=== PATIENT | male | born 1995 | race African-American/Black ===

== ENCOUNTER → 2019-09-04 16:16 | Outpatient (CLI) | payer OTHER, SELFPAY ==
[2019-09-05 14:20] LABS: COVID19 Sendout NOT DETECTED (Not Detect)
== END ==
PROVIDERS: Visit Provider Registered Nurse
DX: Z11.59 Encounter for screening for other viral diseases (principal)
CPT/HCPCS: 87635

== ENCOUNTER 2019-09-07 12:40 | Day surgery (SDC) | payer OTHER, SELFPAY ==
[2019-09-03 13:23] VITALS: BMI 36.9
[2019-09-07] VITALS (7 sets, daily range): BP systolic 133–162; BP diastolic 55–93; PULSE 63–73; RESP 14–17; TEMP 36.9–37.2; O2SAT 98–100; BMI 36.1
[2019-09-07] MEDS: LACTATED RINGERS 1,000 ML 42 ML IV (13:43)
--- NOTE | 2019-09-07 14:41 | PM.PREOP ---
Pre-operative Note COVID-19 COVID-19 status: Negative Interval Note History & Physical reviewed/Exam performed by Physician: Yes Changes to H&P: No
--- NOTE | 2019-09-07 16:06 | P.OP_ITS ---
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 He had extensive conservative therapy including physical therapy and brace use. He has persistent lateral ankle and foot pain. Denies instability or rolling. He had plain x-rays CT and MRI scan from the [facility] that demonstrated nonunited anterior process calcaneus fracture as well as prominent ossicles at the region of the anterior calcaneal process and sinus tarsi. These directly correlate with the location work around on his imaging. He has elected to proceed with removal. The risks and benefits of the procedure have been discussed with the patient even opportunity to ask questions. The risks of surgery include but are not limited to infection, malunion, nonunion, persistence of pain, damage to nerves and blood vessels, posttraumatic arthritis, DVT, PE, cardiopulmonary complications and . The patient expressed a thorough understanding of the risks and benefits of surgery and has elected to proceed. Consent was signed in the office. 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 The patient was then brought back to the operating room by the anesthesia team. Anesthetic was administered. The patient was then positioned lateral on the beanbag. All bony prominences well padded. Well-padded axillary roll was placed. An SCD was placed on the co ntralateral lower extremity. A well-padded calf tourniquet was placed. The operative leg was prepped and draped in standard sterile fashion. A formal time-out procedure was performed confirming the patient's side and site of surgery administration of appropriate preoperative antibiotics and presence of informed consent. All were in agreement. Esmarch was used for exsanguination and tourniquet on the calf was raised to 250 mm of mercury and stayed there for 52 minutes. Mini C-arm was brought in and the sinus tarsi localized and the incision drawn out over the skin from the tip of the distal fibula towards the 4th metatarsal base. Skin incision was made. Dissection was taken through the subcutaneous tissues to expose the extensor hallucis brevis muscle. 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 I was taken to expose this out and released the extensor hallucis brevis by dividing the fascia leaving cuff to repair at the end of the case. This was retracted using a 2 0 PDS suture. This exposed the sinus tarsi. Of note there was a very prominent anterior lateral calcaneal spur that was noted on the preoperative imaging to block access to the subtalar loose bodies. This was localized under fluoroscopy then an osteotome was used to remove the anterolateral calcaneal spur providing access to the sinus tarsus a up against the lateral talar neck. Additional 062 K-wires were placed into the talus to use as retractors for soft tissue. Next combination of the pituitary rongeur orders and Shokan were used to identify and mobilize the intra-articular and sinus tarsi loose bodies these were 2 large ossicles and several smaller ossicles. Once these were completely removed the subtalar joint site and sinus tarsi was thoroughly irrigated taken through inversion eversion and no further loose bodies were found. A small amount of bone wax was used over the calcaneal ostectomy site. Next the 200 PDS into a Vicryl used to repair the extensor hallucis brevis muscle. Then 2 0 PDS was used for subcutaneous closure along with 4 0 Monocryl and then 3 O nylon in the skin. Tourniquet was released hemostasis was achieved. A 20 cc of 0.25% Marcaine were with epinephrine were injected subcutaneously and deep into the joint for local anesthetic. Sterile dressing with Xeroform gauze Webril and an Joel wrap was placed and the patient was placed into a postoperative boot. Patient was awoken from anesthesia and taken to recovery area in good condition there were no immediate complications from this procedure. Complications: none Post-operative Condition: stable Disposition: PACU Plan for aftercare: 50% weight-bearing for 2 weeks and weight bear as tolerated in boot. Keep dressing clean dry and intact. Follow-up in 2 weeks for suture removal.
[2019-09-07] MEDS: CEFAZOLIN 2 GM/100 ML FROZ.PIGGY IV (16:22)
--- NOTE | 2019-09-07 16:50 | SUR.OPER ---
Lateral on padded OR bed, head on pillow, gel axillary roll in place, bottom leg bent with gel pad under knee to foot, upper leg straight and supported with bath blankets per . Upper arm supported by pillows and secured over bottom arm to padded arm board. Safety belt at hip, tape over blanket across left leg.
[2019-09-07] MEDS: BUPIVACAINE 0.25% W/ EPI 30 ML VIAL INJ (17:09)
[2019-09-07] MEDS: HYDROCODONE/ACET 5/325 TABLET 1 TAB PO (18:05)
== END 2019-09-07 18:45 | disposition home or self-care (01) ==
PROVIDERS: Referring Provider Orthopaedic Surgery Foot and Ankle Surgery; Visit Provider Orthopaedic Surgery Foot and Ankle Surgery
PROC: (CPT 28120; principal; 2019-09-07 13:45)
DX: S92.021K Displaced fracture of anterior process of right calcaneus, subsequent encounter for fracture with nonunion (principal); X50.1XXA Overexertion from prolonged static or awkward postures, initial encounter
CPT/HCPCS: 28120; 28020; J0690; J1100; J2405; J2704; J3010

== ENCOUNTER 2022-03-25 13:28 | Emergency (ER) | payer OTHER, SELFPAY ==
[2022-03-25 13:33] VITALS: BP 158/70; PULSE 94; RESP 18; TEMP 36.8; O2SAT 99; BMI 35.7
[2022-03-25 14:21] LABS: Add Manual Diff / Slide Review NO; Basophils Absolute Auto 0 /uL (0-100); Basophils Percent Auto 0.2 % (0-2); Eosinophils Absolute Auto 0 /uL (0-450); Eosinophils Percent Auto 0.6 % (2-4); Hematocrit 44.9 % (41-53); Hemoglobin 14.9 g/dL (13.5-17.5); Lymphocytes Absolute Auto 600 /uL (1100-4500); Lymphocytes Percent Auto 8.5 % (25-40); Mean Corpuscular HGB Conc 33.1 % (30-36); Mean Corpuscular Hemoglobin 31.2 PG (26-34); Mean Corpuscular Volume 94.3 fL (80-100); Monocytes Absolute Auto 700 /uL (0-900); Monocytes Percent Auto 10.2 % (3-14); Neutrophils Absolute Auto 5700 /uL (1500-7000); Neutrophils Percent Auto 80.5 % (50-75); Platelet Count 232 X10^3/uL (150-400); Red Blood Cell Count 4.77 X10^6/uL (4.5-5.9); Red Cell Distribution Width 14.5 % (11.6-14.8); White Blood Cell Count 7.1 X10^3/uL (4.5-11.0)
[2022-03-25 14:26] LABS: Alanine Aminotransferase 45 IU/L (<50); Albumin 4.6 g/dL (3.5-5.0); Albumin Globulin Ratio 1.4 (1.0-2.8); Alkaline Phosphatase 79 U/L (38-126); Aspartate Aminotransferase 57 IU/L (17-59); BUN Creatinine Ratio 22.1 (6-22); Bilirubin Total 0.4 mg/dL (0.2-1.3); Blood Urea Nitrogen 36 mg/dL (9-20); Calcium 9.1 mg/dL (8.4-10.2); Carbon Dioxide 30 mmol/L (22-32); Chloride 98 mmol/L (98-107); Estimated Glomerular Filt Rate 59 mL/min (>60); Globulin 3.3 g/dL (1.7-4.1); Glucose 73 mg/dL (70-100); HEMOLYSIS < 15 (0-50); Lipase 138 U/L (23-300); Potassium 4.2 mmol/L (3.4-5.1); Sodium 137 mmol/L (137-145); Total Protein 7.9 g/dL (6.3-8.2)
[2022-03-25 15:16] VITALS: PULSE 101; O2SAT 98
--- NOTE | 2022-03-25 15:23 | DI.CT.S_ITS ---
PROCEDURE: CT KIDNEY URETER BLADDER (KUB) INDICATIONS: rib/back/groin pain TECHNIQUE: Axial sections were acquired from the lung bases to the pubic symphysis. Coronal and sagittal reformats were performed. For radiation dose reduction, the following was used: automated exposure control, adjustment of mA and/or kV according to patient size. COMPARISON: None. FINDINGS: Image quality: Excellent. Lung bases: Lung bases are clear. Heart size is normal. Solid organs: Liver: The liver has no mass or intrahepatic biliary ductal dilatation. The portal vein and hepatic veins are patent. Biliary: The gallbladder has no gallstones, pericholecystic fluid, gallbladder wall thickening, or surrounding inflammatory change. Pancreas: The pancreas has no mass or ductal dilatation. There is no surrounding inflammation. Spleen: Normal size. There are no masses. Adrenals: No hypertrophy or nodules. Kidneys: No obstructive calculus or hydronephrosis. No solid mass. No cystic mass. Peritoneum and bowel: The distal esophagus and stomach are normal. The small bowel has a normal caliber and appearance. The terminal ileum is normal. The large bowel has a normal caliber and appearance. The appendix is normal. No free fluid or air. Nodes and vessels: No retroperitoneal or mesenteric adenopathy by size criteria. Aorta and inferior vena cava are normal in size. Miscellaneous: No abdominal wall mass or hernia. PELVIS: Genitourinary: The bladder has no wall thickening or mass. No bladder calcifications. Bones: No suspicious bony lesions. No vertebral body compression fractures. IMPRESSION: No acute abdominal or pelvic abnormality. Dictated by: Joey Voss M.D. on 03/25/2022 at 15:45 Approved by: Joey Voss M.D. on 03/25/2022 at 15:49
--- NOTE | 2022-03-25 16:04 | ED.BACK ---
HPI - Back Pain/Injury General Chief Complaint: Back Pain/Injury Stated Complaint: Rib,back and groin pain x5 days Time Seen by Provider: 03/25/22 13:49 Source: patient History of Present Illness HPI Narrative: This is a 26-year-old male who presents with left lower rib, flank pain radiating around to the front of his groin but not including testicle. Patient states it started 5 days ago. He states movement does not seem to make it particularly worse. He is felt warm but had no objective fevers, he felt a little nauseated today but no vomiting. He denies diarrhea, constipation, black or bloody stools. He denies any dysuria, urgency frequency. No discharge. Patient states no testicular pain. Patient denies chest pain or shortness of breath no syncope. He does note that he was told his creatinine was 1.7 about a week ago, he had labs drawn because he was told he needed them for regular screeening, he is in the . He states pain started 2 days afterwards. He does note that he does a lot of weight lifting, sometimes 350 lb with squats. He did not appreciate any injury when he was last lifting. He has been resting the last several days. He denies daily medications he denies supplements were taking [id number] pain medications. No tobacco, occasional alcohol, denies illicit. He stationed at the [employer] on [facility] and gets primary care through there. He does have follow-up regarding his lab work. He is on a aware of any family history of kidney issues. He has not noted any rashes or skin changes. Related Data Previous Rx's Medication Instructions Recorded cephalexin 500 mg capsule 500 mg PO TID #10 caps 06/18/20 tramadol 50 mg tablet 50 mg PO QID PRN pain #10 tabs 03/25/22 Allergies Allergy/AdvReac Type Severity Reaction Status Date / Time oseltamivir [From Tamiflu] Allergy Verified 06/13/20 13:27 Review of Systems Review of Systems ROS Unobtainable: All systems reviewed & are unremarkable except as noted in HPI and below Patient History Medical History Hypertension Sterilization consult Surgical History H/O left knee surgery (09/2015) History of circumcision Social History marital status: number of children: 1 household members: spouse occupational status: employed Smoking Status: Never smoker alcohol intake: never caffeine: No Smoking Status: Never smoker alcohol intake frequency: holidays/special occasions only Substance Use Type: does not use Exam Narrative Exam Narrative: GENERAL: Alert and oriented x three, male in mild distress. Patient feels warm to touch but temperature was rechecked and he is still febrile at 98.8F orally. HEENT: Head normocephalic, atraumatic, EOMI, pupils reactive, face symmetric, moist mucous membranes NECK: Supple, full range of motion CARDIOVASCULAR: Regular rate and rhythm without murmurs, rubs or gallops. RESPIRATORY: Breath sounds equal bilaterally, no wheezes rales or rhonchi. ABDOMEN: Soft, nontender. Normoactive bowel sounds all 4 quadrants. No guarding or rebound, rigidity, no mass, no ecchymosis, no rash, no vesicles. : No CVA tenderness BACK: No cervical, thoracic or lumbar vertebral point tenderness. Patient has normal range of motion. Patient's gait is [antalgic/normal]. Rectal exam is deferred. Muscle strength is 5/5 in lower extremities, patient does not appear more uncomfortable with rotation, flexion extension. EXTREMITIES: Normal range of motion, no clubbing or edema. Neurovascularly intact NEUROLOGICAL: Cranial nerves II through XII grossly intact. Moving all extremities SKIN: Warm, dry, no petechiae, no rashes or lesions. Initial Vital Signs Initial Vital Signs: Vital Signs Temperature 98.2 F 03/25/22 13:33 Pulse Rate 94 H 03/25/22 13:33 Respiratory Rate 18 03/25/22 13:33 Blood Pressure 158/70 H 03/25/22 13:33 Pulse Oximetry 99 03/25/22 13:33 Oxygen Delivery Method 03/25/22 13:33 Course Orders Ordered: Discontinued Medications Acetaminophen (Acetaminophen 325 Mg Tablet) 975 mg PO NOW ONE Stop: 03/25/22 16:28 Last Admin: 03/25/22 16:34 Dose: 975 mg Documented By: RB Sodium Chloride (Normal Saline 0.9%) 1,000 mls @ 1,000 mls/hr IV BOLUS ONE Stop: 03/25/22 16:22 Last Admin: 03/25/22 16:29 Dose: Not Given Documented By: RB Vital Signs Vital signs: Vital Signs - 8 hr 03/25/22 13:33 03/25/22 15:16 Temperature 98.2 F Pulse Rate 94 H 101 H Respiratory Rate 18 Blood Pressure 158/70 H Pulse Oximetry 99 98 Oxygen Delivery Method Room Air MDM - Back Pain/Injury Lab Data Result diagrams: 03/25/22 13:45 03/25/22 13:45 Labs: Lab Results 03/25/22 03/25/22 03/25/22 Range/Units 13:35 13:45 13:45 WBC 7.1 (4.5-11.0) X10^3/uL RBC 4.77 (4.5-5.9) X10^6/uL Hgb 14.9 (13.5-17.5) g/dL Hct 44.9 (41-53) % MCV 94.3 (80-100) fL MCH 31.2 (26-34) PG MCHC 33.1 (30-36) % RDW 14.5 (11.6-14.8) % Plt Count 232 (150-400) X10^3/uL Neut % (Auto) 80.5 H (50-75) % Lymph % (Auto) 8.5 L (25-40) % [place] % (Auto) 10.2 (3-14) % Eos % (Auto) 0.6 L (2-4) % Baso % (Auto) 0.2 (0-2) % Neut # (Auto) 5700 (3992-0901) /uL Lymph # (Auto) 600 L (6591-5412) /uL [place] # (Auto) 700 (0-900) /uL Eos # (Auto) 0 (0-450) /uL Baso # (Auto) 0 (0-100) /uL Sodium 137 (137-145) mmol/L Potassium 4.2 (3.4-5.1) mmol/L Chloride 98 (98-107) mmol/L Carbon Dioxide 30 (22-32) mmol/L BUN 36 H (9-20) mg/dL Creatinine 1.63 H (0.66-1.25) mg/dL Estimated GFR 59 L (>60) mL/min BUN/Creatinine Ratio 22.1 H (6-22) Glucose 73 (70-100) mg/dL Calcium 9.1 (8.4-10.2) mg/dL Total Bilirubin 0.4 (0.2-1.3) mg/dL AST 57 (17-59) IU/L ALT 45 (<50) IU/L Alkaline Phosphatase 79 (38-126) U/L Total Protein 7.9 (6.3-8.2) g/dL Albumin 4.6 (3.5-5.0) g/dL Globulin 3.3 (1.7-4.1) g/dL Albumin/Globulin Ratio 1.4 (1.0-2.8) Lipase 138 (23-300) U/L Urine RBC None seen (0-5/HPF) Urine WBC None seen (0-5/HPF) Urine Bacteria None seen (None) Ur Culture Indicated? Cult not indicated Urine Dip Bedside Urine Glucose Negative Bedside Urine Bilirubin - Negative Bedside Urine Ketone - Negative Urine Specific [place] 1.020 Bedside Urine Occult Blood - Negative Bedside Urine pH 6 Bedside Urine Protein - Negative Bedside Urine Urobilinogen - Negative Bedside Urine Nitrite - Negative Bedside Urine Leukocytes - Negative Esterase Imaging Data CT scan - abdomen/pelvis: Radiologist's Impression: Marquise Fernando??26??M??1995 ? Allergy/Adv: oseltamivir Close Abdomen/Pelvis CT (Signed) Joey Voss - 03/25/22 [address] [address] CT Scan Report Signed Patient: Marquise Fernando MR#: [id number] : 1995 Acct:[id number] Age/Sex: 26 / M Date of Service: 03/25/22 Loc: ED Accession Number: [id number] ?? Procedure: CT kidney ureter bladder (KUB) Ordering Provider: Julienne Tubbs D.O. PROCEDURE:? CT KIDNEY URETER BLADDER (KUB) ? INDICATIONS:? rib/back/groin pain ? TECHNIQUE:? Axial sections were acquired from the lung bases to the pubic symphysis.? Coronal and sagittal reformats were performed.? For radiation dose reduction, the following was used: ?automated exposure control, adjustment of mA and/or kV according to patient size.? ? COMPARISON:? None. ? FINDINGS: Image quality:? Excellent.? ? Lung bases:? Lung bases are clear.? Heart size is normal. ? Solid organs:? Liver: The liver has no mass or intrahepatic biliary ductal dilatation. The portal vein and hepatic veins are patent. Biliary: The gallbladder has no gallstones, pericholecystic fluid, gallbladder wall thickening, or surrounding inflammatory change. Pancreas: The pancreas has no mass or ductal dilatation. There is no surrounding inflammation. Spleen: Normal size. There are no masses. Adrenals: No hypertrophy or nodules. Kidneys: No obstructive calculus or hydronephrosis.? No solid mass. No cystic mass. ? Peritoneum and bowel:? The distal esophagus and stomach are normal.? The small bowel has a normal caliber and appearance. The terminal ileum is normal. The large bowel has a normal caliber and appearance.? The appendix is normal. No free fluid or air.? ? Nodes and vessels:? No retroperitoneal or mesenteric adenopathy by size criteria.? Aorta and inferior vena cava are normal in size.? ? Miscellaneous:? No abdominal wall mass or hernia. ? PELVIS:? Genitourinary:? The bladder has no wall thickening or mass. No bladder calcifications. ? Bones:? No suspicious bony lesions.? No vertebral body compression fractures.? ? IMPRESSION:? No acute abdominal or pelvic abnormality. ? Dictated by: Joey Voss M.D. on 03/25/2022 at 15:45 ? ? Approved by: Joey Voss M.D. on 03/25/2022 at 15:49?? MDM Narrative Medical decision making narrative: This is a 26-year-old male who presents with complaint of left flank pain radiating towards the front. Patient does note his creatinine was 1.7 with an elevated GFR about a week ago this was several days before his pain started. Does lift quite a significant weight up to 350 lb with squats patient may have had a psoas injury, although he does not recall specific incident causing his pain and does not seem to be worse with movement. He appreciates a little bit of increased pain with palpation but very mild. His exam is overall reassuring, his creatinine is similar to his reported most recent lab he has not had labs any time in the last couple years no known family history of renal dysfunction. CT KUB was ordered without contrast secondary to his renal dysfunction to evaluate for kidney stone, obstructive process or other causes none were clearly found. Urine does not show any clear signs of infection, it was sent for urine for possible pyelonephritis although this seems less likely with a negative urine and no acute CT changes. Patient does not have any clear changes on his skin such as shingles, we discussed return precautions avoidance of NSAIDs he denies any supplements or itxl-goq-pijmjhm medications that would likely cause an elevated creatinine. 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 Patient does already have a follow-up set up but asked to contact to follow-up sooner. Discharge Plan Departure Patient Disposition: Home Clinical Impression: Elevated serum creatinine, Flank pain Activity Restrictions/Additional Instructions: Follow up with your primary care provider. Your creatinine today is 1.6 consistent with your recent creatinine week ago. Your urine does not show any signs of infection but has been sent for culture this typically takes 48 hours to result and if positive we will contact you to start antibiotics. The CT of your abdomen and pelvis does not show any changes to the kidneys or the organs in your abdomen. You can take Tylenol up to a 1000 mg every 6 hours as needed for pain. If in adequate you may take 1-2 tablets of tramadol every 6 hours in additional Tylenol. Avoid NSAIDs such as ibuprofen, alleve and naproxen these can affect your kidney function. Prescription sent to [facility] in [place]. Please return for fevers, new or worsening abdominal, back or flank pain, persistent vomiting, black or bloody stools, difficulty with urination. Prescriptions: New tramadol 50 mg tablet 50 mg PO QID PRN (Reason: pain) Qty: 10 0RF No Action cephalexin 500 mg capsule 500 mg PO TID Qty: 10 0RF Referrals: Germain Gracia MD [Primary Care Provider] - Visit Report Forms: Patient Portal/API
[2022-03-25 16:13] VITALS: PULSE 99; O2SAT 98
[2022-03-25 16:15] VITALS: BP 135/63; PULSE 98; O2SAT 98
[2022-03-25 16:30] VITALS: BP 132/61; PULSE 94; O2SAT 97
[2022-03-25 16:34] VITALS: TEMP 37.1
[2022-03-25] MEDS: ACETAMINOPHEN 325 MG TABLET 975 MG PO (16:34)
[2022-03-25 17:20] LABS: Bacteria Urine None Seen; Culture Indicated Urine Cult Not Indicated; RBC Urine None Seen (0-5/HPF); WBC Urine None Seen (0-5/HPF)
== END 2022-03-25 16:51 | disposition home or self-care (01) ==
PROVIDERS: Emergency Provider Emergency Medicine
DX: R10.9 Unspecified abdominal pain (principal); R79.89 Other specified abnormal findings of blood chemistry
CPT/HCPCS: 36415; 74176; 80053; 81003; 81015; 83690; 85025; 87086; 99284

== ENCOUNTER 2022-12-26 18:24 | Emergency (ER) | payer OTHER, SELFPAY ==
[2022-12-26 18:27] VITALS: BP 145/75; PULSE 85; RESP 16; TEMP 36.7; O2SAT 99; BMI 36.9
--- NOTE | 2022-12-26 18:34 | DI.RAD.S_ITS ---
PROCEDURE: XR KNEE LT 3V INDICATIONS: Left knee pain and swelling post-exercise. TECHNIQUE: 3 views of the knee were acquired. COMPARISON: None. FINDINGS: Bones: No fractures or dislocations. No suspicious bony lesions. Soft tissues: There is a mild joint effusion. No suspicious soft tissue calcifications. IMPRESSION: Mild joint effusion, without an acute bony abnormality seen by plain film. If it would be helpful for clinical management decision making, please consider a dedicated, scheduled knee MRI for further evaluation (assuming that there is no contraindication). Dictated by: Steve Obando M.D. on 12/26/2022 at 17:58 Approved by: Steve Obando M.D. on 12/26/2022 at 17:59
--- NOTE | 2022-12-26 18:44 | ED_ITS ---
HPI - Extremity Injury (Lower) General Chief Complaint: Extremity Injury, Lower Stated Complaint: lt knee injury Time Seen by Provider: 12/26/22 18:42 Source: patient Mode of arrival: Ambulatory Limitations: no limitations History of Present Illness HPI Narrative: This is a 27-year-old male with history of prior MCL, meniscal surgery on his left knee. Patient states he stepped off a ladder about 2 weeks ago and has had some burning in that knee since then. Last night he was doing leg presses and felt a burning sensation with a pull at the top of the patella and on the sides and this a.m. states his knee was much more swollen and painful to weightbear. Patient states he is most comfortable in extended position it is much more comfortable be held flexed. He states the swelling has improved as the day has gone by and he has been able to ambulate better as the days gone by. He did spend most of the day on the couch with his knee elevated with ice. Patient states a little bit of numb sensation along the side of the knee on the lateral side. No weakness, no loss of sensation otherwise. Patient states no red, warmth or erythema noted. He states no other major medical issues, he does take Zoloft daily for anxiety. No other surgeries besides his left knee surgery. No known drug allergies. No tobacco, occasional alcohol, no illicit. Patient follows medical care with the [facility]. 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 Related Data Previous Rx's Medication Instructions Recorded cephalexin 500 mg capsule 500 mg PO TID #10 caps 06/18/20 tramadol 50 mg tablet 50 mg PO QID PRN pain #10 tabs 03/25/22 Allergies Allergy/AdvReac Type Severity Reaction Status Date / Time oseltamivir [From Tamiflu] Allergy Swelling Verified 12/26/22 18:27 of Lip/Tongue/Throat Review of Systems Review of Systems ROS Unobtainable: All systems reviewed & are unremarkable except as noted in HPI and below Patient History Medical History Hypertension Sterilization consult Surgical History H/O left knee surgery (09/2015) History of circumcision Social History marital status: number of children: 1 household members: spouse occupational status: employed Smoking Status: Never smoker alcohol intake: never caffeine: No Smoking Status: Never smoker alcohol intake frequency: holidays/special occasions only Substance Use Type: does not use Exam Narrative Exam Narrative: GENERAL: Alert and oriented x three, male in mild distress HEENT: Head normocephalic, atraumatic, EOMI, pupils reactive, face symmetric, moist mucous membranes NECK: Supple, full range of motion CARDIOVASCULAR: Regular rate and rhythm without murmurs, rubs or gallops. RESPIRATORY: Breath sounds equal bilaterally, no wheezes rales or rhonchi. ABDOMEN: Soft, nontender. Normoactive bowel sounds all 4 quadrants. No guarding or rebound, rigidity, no mass : No CVA tenderness EXTREMITIES: Normal range of motion, no clubbing. Neurovascularly intact. Patient has some very mild tenderness around the patella, no bony tenderness. Very mild swelling at the knee. Patient has some increased discomfort with anterior drawer, none with posterior, valgus and varus testing is negative. Compression test is negative. Patient otherwise has appropriate range of motion. He is most comfortable in extension. 2+ posterior tibialis. Normal sensation throughout. No erythema, no warmth, or other skin changes noted. Fully healed vertical incision over the knee. NEUROLOGICAL: Cranial nerves II through XII grossly intact. Moving all extremities SKIN: Warm, dry, no petechiae, no rashes or lesions. Initial Vital Signs Initial Vital Signs: Vital Signs Temperature 98.1 F 12/26/22 18:27 Pulse Rate 85 12/26/22 18:27 Respiratory Rate 16 12/26/22 18:27 Blood Pressure 145/75 H 12/26/22 18:27 Pulse Oximetry 99 12/26/22 18:27 Oxygen Delivery Method Room Air 12/26/22 18:27 Course Orders Ordered: ED Orders 12/26/22 18:34 XR knee LT 3V Stat Vital Signs Vital signs: Vital Signs - 8 hr 12/26/22 18:27 Temperature 98.1 F Pulse Rate 85 Respiratory Rate 16 Blood Pressure 145/75 H Pulse Oximetry 99 Oxygen Delivery Method Room Air MDM - Extremity Injury (Lower) Imaging Data Extremity x-ray #1: Radiologist's Impression: [address] [id number] XRay Report Signed Patient: Marquise Fernando MR#: [id number] : 1995 Acct:[id number] Age/Sex: 27 / M Date of Service: 12/26/22 Loc: ED Accession Number: [id number] ?? Procedure: XR knee LT 3V Ordering Provider: Julienne Tubbs D.O. PROCEDURE:? XR KNEE LT 3V ? INDICATIONS:? Left knee pain and swelling post-exercise. ? TECHNIQUE:? 3 views of the knee were acquired.? ? COMPARISON:? None. ? FINDINGS:? ? Bones:? No fractures or dislocations.? No suspicious bony lesions.? ? Soft tissues:? There is a mild joint effusion.? No suspicious soft tissue calcifications. ? ? ? IMPRESSION:? Mild joint effusion, without an acute bony abnormality seen by plain film. ? If it would be helpful for clinical management decision making, please consider a dedicated, scheduled knee MRI for further evaluation (assuming that there is no contraindication).? ? ? Dictated by: Steve Obando M.D. on 12/26/2022 at 17:58 ? ? Approved by: Steve Obando M.D. on 12/26/2022 at 17:59?? MDM Narrative Medical decision making narrative: This is a 27-year-old male who presents with complaint of left knee injury acute on chronic had a minor injury about 2 weeks and likely re-injured. Suspect maybe some mild tendon or ligamentous injury. Plan for knee immobilizer, weight-bearing as tolerated. Tylenol/ibuprofen and follow up with Orthopedic surgery versus primary care. X-ray shows mild joint effusion no other acute changes appreciated. Disc was given to patient to share with his providers at the [facility]. Discharge Plan Departure Patient Disposition: Home Clinical Impression: Strain of left knee Instructions: DI for Knee Pain Activity Restrictions/Additional Instructions: Your imaging does show a small amount of fluid or effusion at the knee. Please follow-up with Orthopedic surgery or primary care for recheck. Call 1st thing Tuesday morning to set up follow-up. Take the disc with your images provided to your appointment. Please wear knee immobilizer until your symptoms have improved. You can take it off when you are resting or washing. You may weightbear as tolerated. You may take Tylenol up to a 1000 mg every 6 hours and/or ibuprofen up to 600 mg every 6 hours as needed for pain. Splint Care: Keep splint clean and dry. Elevated affected body part to decrease swelling. OK to use ice pack on the affected body part. Use for 15-20 minutes each time, for 5-6x per day. If you develop worsening pain, numbness, tingling, discoloration of the affected body part, loosen the splint by loosening the HAI wrap, and either see your doctor for an urgent re-assessment, or return to the Emergency Department. Return to the Emergency Department for any new or worsening symptoms. Prescriptions: No Action tramadol 50 mg tablet 50 mg PO QID PRN (Reason: pain) Qty: 10 0RF cephalexin 500 mg capsule 500 mg PO TID Qty: 10 0RF Referrals: Mabel Perkins MD [Physician] - Germain Gracia MD [Primary Care Provider] - Stand Alone Forms: Patient Portal/API, Work Release Note
== END 2022-12-26 19:50 | disposition home or self-care (01) ==
PROVIDERS: Emergency Provider Emergency Medicine
DX: S86.812A Strain of other muscle(s) and tendon(s) at lower leg level, left leg, initial encounter (principal); W11.XXXA Fall on and from ladder, initial encounter; Y93.9 Activity, unspecified; Y92.9 Unspecified place or not applicable; Y99.9 Unspecified external cause status
CPT/HCPCS: 73562; 99283

== ENCOUNTER 2023-04-03 22:31 | Emergency (ER) | payer OTHER, SELFPAY ==
[2023-04-03 22:38] VITALS: BP 150/75; PULSE 73; RESP 18; TEMP 36.4; O2SAT 97; BMI 37.2
[2023-04-03 23:31] LABS: Alanine Aminotransferase 34 IU/L (<50); Albumin 4.3 g/dL (3.5-5.0); Albumin Globulin Ratio 1.4 (1.0-2.8); Alkaline Phosphatase 72 U/L (38-126); Aspartate Aminotransferase 45 IU/L (17-59); Bilirubin Total 0.5 mg/dL (0.2-1.3); Blood Urea Nitrogen 32 mg/dL (9-20); Calcium 9.4 mg/dL (8.4-10.2); Carbon Dioxide 27 mmol/L (22-32); Chloride 101 mmol/L (98-107); Estimated Glomerular Filt Rate 60 mL/min (>60); Globulin 3.1 g/dL (1.7-4.1); Glucose 101 mg/dL (70-100); HEMOLYSIS < 15 (0-50); Lipase 164 U/L (23-300); Potassium 4.2 mmol/L (3.4-5.1); Sodium 137 mmol/L (137-145); Total Protein 7.4 g/dL (6.3-8.2)
[2023-04-03 23:36] LABS: Add Manual Diff / Slide Review NO; Basophils Absolute Auto 100 /uL (0-100); Eosinophils Absolute Auto 100 /uL (0-450); Eosinophils Percent Auto 2.1 % (2-4); Hematocrit 47.2 % (41-53); Hemoglobin 15.9 g/dL (13.5-17.5); Lymphocytes Absolute Auto 2000 /uL (1100-4500); Lymphocytes Percent Auto 28.1 % (25-40); Mean Corpuscular HGB Conc 33.7 % (30-36); Mean Corpuscular Hemoglobin 31.5 PG (26-34); Mean Corpuscular Volume 93.7 fL (80-100); Monocytes Absolute Auto 1100 /uL (0-900); Monocytes Percent Auto 15.5 % (3-14); Neutrophils Absolute Auto 3800 /uL (1500-7000); Neutrophils Percent Auto 53.3 % (50-75); Platelet Count 246 X10^3/uL (150-400); Red Blood Cell Count 5.04 X10^6/uL (4.5-5.9); Red Cell Distribution Width 13.2 % (11.6-14.8); White Blood Cell Count 7.2 X10^3/uL (4.5-11.0)
[2023-04-03 23:51] VITALS: PULSE 58; O2SAT 98
[2023-04-04] VITALS: PULSE 66; O2SAT 96
[2023-04-04 00:06] VITALS: BP 139/51; PULSE 61; O2SAT 97
--- NOTE | 2023-04-04 00:13 | ED_ITS ---
HPI - Back Pain/Injury General Chief Complaint: Back Pain/Injury Stated Complaint: pain in back and under Ribs Time Seen by Provider: 04/04/23 00:13 Source: patient History of Present Illness HPI Narrative: Otherwise healthy 27-year-old gentleman who presents complaining of bilateral flank pain for approximately a week. He noted today that he has been having low-grade fevers, myalgias and a mild cough. Notes that he does do heavy weight lifting on a regular basis but does not report any obvious injuries noted with his recent gym work. He has a history of kidney disease with a creatinine running in the 1.6 range and is scheduled see a wind tunnel technician. With the bilateral flank pain he comes in for reassurance regarding kidney function. He does not notice palpitations, chest pain, lower extremity edema Related Data Previous Rx's Medication Instructions Recorded cephalexin 500 mg capsule 500 mg PO TID #10 caps 06/18/20 tramadol 50 mg tablet 50 mg PO QID PRN pain #10 tabs 03/25/22 Allergies Allergy/AdvReac Type Severity Reaction Status Date / Time oseltamivir [From Tamiflu] Allergy Swelling Verified 12/26/22 18:27 of Lip/Tongue/Throat Review of Systems Review of Systems Narrative: Pertinent positive and negative findings as per HPI Patient History Medical History Sterilization consult Hypertension Surgical History History of circumcision H/O left knee surgery (09/2015) Social History marital status: number of children: 1 household members: spouse occupational status: employed Smoking Status: Never smoker alcohol intake: never caffeine: No Smoking Status: Never smoker alcohol intake frequency: holidays/special occasions only Substance Use Type: does not use Exam Initial Vital Signs Initial Vital Signs: Vital Signs Temperature 97.5 F L 04/03/23 22:38 Pulse Rate 73 04/03/23 22:38 Respiratory Rate 18 04/03/23 22:38 Blood Pressure 150/75 H 04/03/23 22:38 Pulse Oximetry 97 04/03/23 22:38 Oxygen Delivery Method Room Air 04/03/23 22:38 General: Healthy appearing, in no acute distress. Able to give a complete and coherent history. Well-nourished well-developed HEENT: Moist mucous membranes, normal sclera with reactive pupils, mild scleral injection Respiratory: Lungs are clear to auscultation, no wheezing no rales no rhonchi. Full and symmetrical air movement Cardiac: Regular rate and rhythm no murmurs no bruits Abdomen: Soft, nontender, good bowel tones, mild bilateral flank pain, no lumbar or thoracic spine tenderness to palpation. No paraspinous muscle spasm Skin: Warm and dry, no rashes Neurologic: Grossly neurologically intact with no obvious asymmetries or abnormalities Extremities: No trauma, well perfused Psych: Cooperative, appropriate insight and affect Course Orders Ordered: ED Orders 04/03/23 23:05 Complete Blood Count AUTO DIFF Stat Comprehensive Metabolic Panel Stat Lipase Stat 04/04/23 00:50 COVID19 -Nasal RAPID Stat 04/04/23 00:52 CT kidney ureter bladder (KUB) Stat Vital Signs Vital signs: Vital Signs - 8 hr 04/03/23 22:38 04/03/23 23:51 04/04/23 00:00 Temperature 97.5 F L Pulse Rate 73 58 L 66 Respiratory Rate 18 Blood Pressure 150/75 H Pulse Oximetry 97 98 96 Oxygen Delivery Method Room Air 04/04/23 00:06 04/04/23 00:06 04/04/23 00:30 Temperature Pulse Rate 61 62 Respiratory Rate Blood Pressure 139/51 L Pulse Oximetry 97 95 Oxygen Delivery Method 04/04/23 00:31 04/04/23 00:31 Temperature Pulse Rate 65 Respiratory Rate Blood Pressure 138/66 Pulse Oximetry 96 Oxygen Delivery Method MDM - Back Pain/Injury Lab Data 04/03/23 23:05 04/03/23 23:05 Labs: Lab Results 04/03/23 04/04/23 Range/Units 23:05 00:50 WBC 7.2 (4.5-11.0) X10^3/uL RBC 5.04 (4.5-5.9) X10^6/uL Hgb 15.9 (13.5-17.5) g/dL Hct 47.2 (41-53) % MCV 93.7 (80-100) fL MCH 31.5 (26-34) PG MCHC 33.7 (30-36) % RDW 13.2 (11.6-14.8) % Plt Count 246 (150-400) X10^3/uL Neut % (Auto) 53.3 (50-75) % Lymph % (Auto) 28.1 (25-40) % [place] % (Auto) 15.5 H (3-14) % Eos % (Auto) 2.1 (2-4) % Baso % (Auto) 1.0 (0-2) % Neut # (Auto) 3800 (6394-0797) /uL Lymph # (Auto) 2000 (3894-8618) /uL [place] # (Auto) 1100 H (0-900) /uL Eos # (Auto) 100 (0-450) /uL Baso # (Auto) 100 (0-100) /uL Sodium 137 (137-145) mmol/L Potassium 4.2 (3.4-5.1) mmol/L Chloride 101 (98-107) mmol/L Carbon Dioxide 27 (22-32) mmol/L BUN 32 H (9-20) mg/dL Creatinine 1.60 H (0.66-1.25) mg/dL Estimated GFR 60 (>60) mL/min BUN/Creatinine Ratio 20.0 (6-22) Glucose 101 H (70-100) mg/dL Calcium 9.4 (8.4-10.2) mg/dL Total Bilirubin 0.5 (0.2-1.3) mg/dL AST 45 (17-59) IU/L ALT 34 (<50) IU/L Alkaline Phosphatase 72 (38-126) U/L Total Protein 7.4 (6.3-8.2) g/dL Albumin 4.3 (3.5-5.0) g/dL Globulin 3.1 (1.7-4.1) g/dL Albumin/Globulin Ratio 1.4 (1.0-2.8) Lipase 164 (23-300) U/L SARS-CoV-2 (PCR) Negative (Negative) Urine Dip Bedside Urine Glucose Negative Bedside Urine Bilirubin - Negative Bedside Urine Ketone - Negative Urine Specific [place] 1.015 Bedside Urine Occult Blood - Negative Bedside Urine pH 6.0 Bedside Urine Protein - Negative Bedside Urine Urobilinogen - Negative Bedside Urine Nitrite - Negative Bedside Urine Leukocytes - Negative Esterase MDM Narrative Medical decision making narrative: CC: Bilateral flank pain Complicating co-morbidities: Kidney disease with creatinine at 1.6 Data collected from: patient 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 He does have some musculoskeletal tenderness over his flanks, no abdominal tenderness no muscle spasm along the spine or lower back Lab Test results independently reviewed as above. Pertinent findings: CBC is unremarkable Point of care urine shows no blood or protein Chemistries are notable only for a creatinine at 1.6 with a GFR greater than [address] COVID test is negative CT KUB of the abdomen shows no specific findings beyond constipation Discussion: 27-year-old otherwise healthy gentleman with bilateral flank pain uncertain etiology. No evidence of acute kidney change, pyelonephritis or bacterial infection. With the pain ongoing for the last week I suspect that this is more musculoskeletal in nature rather than acute renal abnormality. Findings reviewed with the patient. No evidence of COVID or significant intra- abdominal pathology. I do suspect that this is musculoskeletal. All of this is reviewed with him. He is given copies of labs and CT results and is safe for discharge home Discharge Plan Departure Patient Disposition: Home Clinical Impression: Bilateral flank pain Constipation Qualifiers: Constipation type: unspecified constipation type Qualified Code(s): K59.00 - Constipation, unspecified Instructions: DI for Constipation Activity Restrictions/Additional Instructions: Thank you for coming in today Fortunately your lab work is very reassuring. Your creatinine is slightly up your GFR is still greater than 60 all of which is quite reassuring. When you do see your wind tunnel technician, please take him copies of blood work from today. We did do a CT scan without contrast of your abdomen and pelvis. Your kidney size and shape. Quite appropriate. Were no other significant abnormalities or concerns aside from a large amount of stool throughout your colon. We discussed using MiraLax to try to clean out your colon and see if this helps with the flank discomfort. If you find that you are getting worse or develop any new symptoms, please feel free to return to the emergency department for further evaluation. Prescriptions: No Action tramadol 50 mg tablet 50 mg PO QID PRN (Reason: pain) Qty: 10 0RF cephalexin 500 mg capsule 500 mg PO TID Qty: 10 0RF Referrals: Germain Gracia MD [Primary Care Provider] - Stand Alone Forms: Patient Portal/API
[2023-04-04 00:30] VITALS: PULSE 62; O2SAT 95
[2023-04-04 00:31] VITALS: BP 138/66; PULSE 65; O2SAT 96
--- NOTE | 2023-04-04 00:52 | DI.CT.S_ITS ---
PROCEDURE: CT KIDNEY URETER BLADDER (KUB) INDICATIONS: flank pain TECHNIQUE: Axial sections were acquired from the lung bases to the pubic symphysis. Coronal and sagittal reformats were performed. For radiation dose reduction, the following was used: automated exposure control, adjustment of mA and/or kV according to patient size. COMPARISON: [facility], CT, CT KIDNEY URETER BLADDER (KUB), 03/25/2022, 15:27. FINDINGS: Image quality: Diagnostic. Lower Chest: No significant findings. URINARY: Right Kidney: No stones or hydronephrosis. Right Ureter: No hydroureter. Left Kidney: No stones or hydronephrosis. Left Ureter: No hydroureter. Bladder: Normal wall is mildly thickened for level of distention. No stones. ABDOMEN: Liver: No contour-deforming solid mass. Gallbladder: No radiopaque gallstones or wall thickening. Biliary ducts: No biliary dilation. Pancreas: No ductal dilation. Spleen: Size is within normal limits. Adrenal Glands: No adrenal nodules. Stomach and Bowel: Normal colonic caliber, without significant wall thickening. Large burden of stool throughout the colon, correlate for constipation. Normal appendix. Peritoneum: No abnormal intraperitoneal fluid. No free air. Ventral Wall: No hernia. Abdominal Nodes: No enlarged retroperitoneal or mesenteric lymph nodes. Vessels: Aorta and inferior vena cava are normal in size. PELVIS: Pelvic Organs: Unremarkable. Pelvic Nodes: Unremarkable. Miscellaneous: No inguinal hernias are seen. Bones: Unremarkable. IMPRESSION: 1. No obstructing stones or hydronephrosis. 2. The urinary bladder wall is mildly thickened given level distension. Consider urinalysis to exclude cystitis. 3. Large burden of stool throughout the colon, correlate for constipation. Dictated by: Felipe Leigh M.D. on 04/04/2023 at 1:14 Approved by: Felipe Leigh M.D. on 04/04/2023 at 1:18
--- NOTE | 2023-04-04 01:03 | PC.NURSE ---
left flank radiating into left lower abdomen and left groin since tuesday. States 1 month ago he was told his BUN and creatinine were mildly elevated. Attempting to obtain follow up with nephrology.
[2023-04-04 01:12] LABS: COVID19 -Nasal RAPID Negative (Negative)
[2023-04-04 01:45] VITALS: BP 157/91; PULSE 68; RESP 16; TEMP 36.6; O2SAT 98
== END 2023-04-04 01:45 | disposition home or self-care (01) ==
PROVIDERS: Emergency Provider Emergency Medicine
DX: R10.9 Unspecified abdominal pain (principal); K59.00 Constipation, unspecified; Z20.822 Contact with and (suspected) exposure to COVID-19
CPT/HCPCS: 36415; 74176; 80053; 81003; 83690; 85025; 87635; 99284; C9803